=== PATIENT | female | born 1980 | race Asian ===

== ENCOUNTER 2017-11-29 18:03 | Emergency (ER) | payer SELFPAY ==
[~2017-11-29] VITALS: Ht 167.6 cm; Wt 67.0 kg
[2017-11-29 18:07] VITALS: BP 100/62
[2017-11-29] MEDS ORDERED: SODIUM CHLORIDE 0.9% 1,000 ML IV ONE (18:35)
== END 2017-11-29 20:06 | disposition left against medical advice (07) ==
LOC: ER 18:03
DX: O26.891 Other specified pregnancy related conditions, first trimester (principal); O20.0 Threatened abortion; R55 Syncope and collapse; R42 Dizziness and giddiness; R53.1 Weakness; D64.9 Anemia, unspecified; Z3A.10 10 weeks gestation of pregnancy
CPT/HCPCS: 99283; J7030

== ENCOUNTER 2020-03-22 17:34 | Emergency (ER) | payer SELFPAY ==
[~2020-03-22] VITALS: Ht 172.7 cm; Wt 68.0 kg
[2020-03-22] MEDS ORDERED: ONDANSETRON HCL 4MG/2ML INJ IV STA (18:07)
[2020-03-22] MEDS ORDERED: SODIUM CHLORIDE 0.9% 1,000 ML IV ONE (18:15)
[2020-03-22 18:51] LABS: BASOPHILS % 0.6 % (0.0-2.0); HEMATOCRIT. 37.1 % (36.0-48.0); HEMOGLOBIN. 12.8 g/dL (12.0-16.0); LYMPHOCYTES % 22.2 % (20.0-50.0); MEAN CORPUSCULAR HEMOGLOBIN 29.5 pg (28.0-32.0); MEAN CORPUSCULAR VOLUME 85.8 fL (81.0-99.0); MEAN PLATELET VOLUME 9.2 fl (7.4-10.4); MONOCYTES % 5.4 % (2.0-8.0); NEUTROPHILS % 69.8 % (40.0-76.0); PLATELET 188 x1000/uL (130-400); RED BLOOD CELL COUNT 4.32 mill/uL (4.2-5.4); RED CELL DISTRIBUTION WIDTH 12.5 % (11.6-14.6)
[2020-03-22 18:51] LABS: CLARITY URINE CLOUDY (CLEAR); COLOR URINE YELLOW (YELLOW); KETONES URINE 1+ (NEGATIVE); LEUKOCYTE ESTERASE URINE TRACE (NEGATIVE); NITRITE URINE NEGATIVE (NEGATIVE); OCCULT BLOOD URINE 2+ (NEGATIVE); PROTEIN URINE 1+ (NEGATIVE); SPECIFIC GRAVITY URINE 1.031 (1.005-1.030)
[2020-03-22 18:52] LABS: CHLORIDE 107 mEq/L (98-107)
[2020-03-22 18:56] LABS: ETHANOL BLOOD < 10 mg/dL
[2020-03-22] MEDS ORDERED: POTASSIUM CHLORIDE 20MEQ TABLET SR PO ONE (19:30)
[2020-03-22 19:32] LABS: HCG SCREEN NEGATIVE
[2020-03-22 20:06] VITALS: BP 101/59
== END 2020-03-22 20:12 | disposition home or self-care (01) ==
LOC: ER 17:34
DX: K29.00 Acute gastritis without bleeding (principal); E87.6 Hypokalemia; F17.200 Nicotine dependence, unspecified, uncomplicated
CPT/HCPCS: 36415; 80053; 80320; 81003; 81025; 83690; 84484; 84703; 85025; 93005; 96361; 96374; 99284; J2405; J7030; G0480